=== PATIENT | female | born 1965 | race Caucasian/White ===

== ENCOUNTER → 2018-09-21 | Outpatient (CLI) | payer OTHER ==
--- NOTE | 2018-09-22 09:36 | Diagnostic Imaging Report ---
Examination: MRI SPINE LUMBAR WITHOUT CONTRAST History: Low back pain radiating to the left knee. Comparison studies: None Technique: Sagittal, coronal and axial T2 , sagittal T1 and STIR; axial spin density oblique. Findings: Number of lumbar vertebral bodies: Five. Alignment: Normal lordosis. No scoliosis. Soft tissues: No T2 hyperintense inflammatory changes. Posterior paraspinal soft tissues and muscles: No abnormality. Lower thoracic cord: Normal in signal and morphology. The tip of the conus is at T12-L1. Cauda equina: No masses. No arachnoiditis. Vertebrae: No fractures, infection or neoplasm. A 1.4 cm T1 and T2 hyperintense and STIR hypointense lesion is demonstrated in the L2 vertebral body on the right, representing a nonaggressive hemangioma. Degenerative changes: L1-L2: Mild bilateral facet arthropathy. No degenerative disc or foraminal or canal stenosis. L2-L3: Left foraminal and extraforaminal disc protrusion results in mild left neural foraminal narrowing and contacts the exiting left L2 nerve root. No right foraminal or canal stenosis. L3-L4: Mild diffuse bulge results in mild canal stenosis. No foraminal stenosis. Central annular fissure. L4-L5: Mild diffuse disc bulge and mild bilateral facet arthropathy. No foraminal or canal stenosis. Central disc protrusion with annular fissure which mildly flattens the ventral thecal sac. L5-S1: Mild asymmetric left disc bulging and mild bilateral facet arthropathy result in mild bilateral neural foraminal narrowing. No canal stenosis. Left central annular fissure. Trace bilateral facet joint effusions. IMPRESSION: 1. Degenerative changes from L1-L2 through L5-S1 with mild canal stenosis at L3-L4. Left foraminal and extra foraminal disc protrusion at L2-L3 contacts the exiting left L2 nerve root. 2. No significant (not moderate or severe) foraminal stenosis. 3. Annular fissures from L3-L4 through L5-S1. 4. Nonaggressive hemangioma of L2. Signed by: Dr. Carlie Wallis M.D. on 09/22/2018 9:32 AM
== END ==
LOC: MRI 12:32
PROVIDERS: ATTEND Orthopaedic Surgery Orthopaedic Surgery of the Spine
DX: M54.5 Low back pain (principal)
CPT/HCPCS: 72148

== ENCOUNTER 2018-10-08 06:31 | Observation (INO) | payer OTHER ==
[2018-10-06 09:09] LABS: BASOPHILS % 0.7 % (0.0-1.0); EOSINOPHILS % 0.7 % (0.0-6.0); HEMATOCRIT 38.8 % (34.2-44.1); HEMOGLOBIN 13.1 g/dL (12.0-16.0); LYMPHOCYTES # (AUTO) 1.8 (1.0-3.2); LYMPHOCYTES % 32.7 % (18.0-39.1); MEAN CORPUSCULAR HGB CONC 33.8 g/dL (31-35); MEAN CORPUSCULAR VOLUME 88.8 fL (81-99); MONOCYTES # (AUTO) 0.3 (0.2-0.8); MONOCYTES % 4.8 % (4.4-11.3); NEUTROPHILS # (AUTO) 3.3 (2.1-6.9); NEUTROPHILS % 60.9 % (38.7-80.0); PLATELET COUNT 179 x10e3/uL (140-360); RED BLOOD COUNT 4.37 x10e6/uL (3.6-5.1); RED CELL DISTRIBUTION WIDTH 12.3 % (11.7-14.4)
--- NOTE | 2018-10-06 09:17 | Diagnostic Imaging Report ---
EXAMINATION: PA and lateral views of the chest. COMPARISON: None CLINICAL HISTORY: Preoperative study for lumbar spine surgery DISCUSSION: Lines/tubes: None Lungs: The lungs are well inflated and clear. There is no evidence of pneumonia or pulmonary edema. Pleura: There is no pleural effusion or pneumothorax. Heart and mediastinum: The cardiomediastinal silhouette is normal. Bones and soft tissues: No acute bony abnormalities. IMPRESSION: No acute cardiopulmonary abnormalities. Signed by: Dr. Ramos Dyson M.D. on 10/06/2018 9:14 AM
[2018-10-06 09:25] LABS: ANION GAP 11.9 mmol/L (8-16); BLOOD UREA NITROGEN 13 mg/dL (7-26); BUN/CREATININE RATIO 17 (6-25); CALCIUM 9.1 mg/dL (8.4-10.2); CARBON DIOXIDE 28 mmol/L (22-29); CHLORIDE 106 mmol/L (98-107); CREATININE, SERUM 0.76 mg/dL (0.57-1.11); EST GLOMERULAR FILTRATION RATE > 60 ML/MIN (60-); GLUCOSE 90 mg/dL (74-118); POTASSIUM 3.9 mmol/L (3.5-5.1); SODIUM 142 mmol/L (136-145)
[2018-10-06 09:30] LABS: PARTIAL THROMBOPLASTIN TIME 26.1 seconds (23.8-35.5)
[2018-10-06 09:48] LABS: INR 0.9; PROTHROMBIN TIME 12.6 seconds (11.9-14.5)
[~2018-10-08] VITALS: Ht 182.9 cm; Wt 86.2 kg
[~2018-10-08 06:31] MED LIST: ADDERALL 30 MG30 MG PO; CELEBREX100 MG PO; GABAPENTIN300 MG PO; LEVOTHYROXINE; LEVOTHYROXINE50 MCG PO; ULTRAM50 MG PO
--- OUTSIDE RECORDS SUMMARY | 2018-10-08 06:34 | XMS REPORT ---
Author Author [facility] Address Unknown Phone Unavailable Care Team Providers Care [employer] Consultant Name Role Phone CHRISTA CANO Unavailable Unavailable NATALIYA RDZ Unavailable Unavailable Problems This patient has no known problems. Allergies, Adverse Reactions, Alerts This patient has no known allergies or adverse reactions. Medications This patient has no known medications. Results Test Description Test Time Test Comments Text Results Atomic Results Result Comments CHEST 2 VIEWS 2018-10-06 09:12:00 [facility] [address] [address] Patient Name: RAMANA CHURCH MR #: [id number] : 1965 Age/Sex: 53/F Req #: [id number] Adm Physician: Ordered by: CHRISTA CANO MD Report #: [id number] Location: OR Room/Bed: Procedure: [id number] DX/CHEST 2 VIEWS Exam Date: 10/06/18 Exam Time: 0900 REPORT STATUS: Signed EXAMINATION: PA and lateral views of the chest. COMPAR NICO: None CLINICAL HISTORY: Preoperative study for lumbar spine surgery DISCUSSION: Lines/tubes: None Lungs: The lungs are well inflated and clear. There is no evidence of pneumonia or pulmonary edema. Pleura: There is no pleural effusion or pneumothorax. Heart and mediastinum: The cardiomediastinal silhouette is normal. Bones and soft tissues: No acute bony abnormalities. IMPRESSION: No acute cardiopulmonary abnormalities. Signed by: Dr. Pasha Charles M.D. on 10/06/2018 9:14 AM Dictated By: PASHA CHARLES MD 3 Transcribed By: NICOLASA on 10/06/18913 COPY TO: CHRISTA CANO MD MRI SPINE LUMBAR WO 2018-09-22 08:17:00 [address] [address] Patient Name: RAMANA CHURCH MR #: [id number] : 1965 Age/Sex: 53/F Req #: [id number] Adm Physician: Ordered by: NATALIYA RDZ Report #: [id number] Location: MRI Room/Bed: Procedure: [id number] MRI/MRI SPINE LUMBAR WO Exam Date: Exam Time: REPORT STATUS: Signed Examination: MRI SPINE LUMBAR WITHOUT CONTRAST History: Low back pain radiating to the left knee. Comparison studies: None Technique: Sagittal, coronal and axial T2 , sagittal T1 and STIR; axial spin density oblique. Findings: Number of lumbar vertebral bodies: Five. Alignment: Normal lordosis. No scoliosis. Soft tissues: No T2 hyperintense inflammatory changes. Posterior paraspinal soft tissues and muscles: No abnormality. Lower thoracic cord: Normal in signal and morphology. The tip of the conus is at T12-L1. Cauda equina: No masses. No arachnoiditis. Vertebrae: No fractures, infection or neoplasm. A 1.4 cm T1 and T2 hyperintense and STIR hypointense lesion is demonstrated in the L2 vertebral body on the right, representing a nonaggressive hemangioma. Degenerative changes: L1-L2: Mild bilateral facet arthropathy. No degenerative disc or foraminal or canal stenosis. L2-L3: Left foraminal and extraforaminal disc protrusion results in mild left neural foraminal narrowing and contacts t he exiting left L2 nerve root. No right foraminal or canal stenosis. L3- L4: Mild diffuse bulge results in mild canal stenosis. No foraminal stenosis. Central annular fissure. L4-L5: Mild diffuse disc bulge and mild bilateral facet arthropathy. No foraminal or canal stenosis. Central disc protrusion with annular fissure which mildly flattens the ventral thecal sac. L5-S1: Mild asymmetric left disc bulging and mild bilateral facet arthropathy result in mild bilateral neural foraminal narrowing. No canal stenosis. Left central annular fissure. Trace bilateral facet joint effusions. IMPRESSION: 1. Degenerative changes from L1-L2 through L5-S1 with mild canal stenosis at L3-L4. Left foraminal and extra foraminal disc protrusion at L2-L3 contacts the exiting left L2 nerve root. 2. No significant (not moderate or severe) foraminal stenosis. 3. Annular fissures from L3-L4 through L5-S1. 4. Nonaggressive hemangioma of L2. Signed by: Dr. Carlie Wallis M.D. on 09/22/2018 9:32 AM Dictated By: CARLIE MALLOY MD 1 Transcribed By: NICOLASA on 09/22/18931 COPY TO: NATALIYA RDZ
[2018-10-08] MEDS ORDERED: GELATIN SPONGE 12-7MM ONE (06:41)
[2018-10-08] MEDS ORDERED: BACITRACIN 50,000 UNIT VIAL ONE (06:41)
[2018-10-08] MEDS ORDERED: BUPIVACAINE 0.5%/EPI 30 ML SDV INJ ONE (06:41)
[2018-10-08] MEDS ORDERED: THROMBIN FOR SOLN 5,000 UNIT VIAL ONE (06:41)
[2018-10-08] MEDS ORDERED: VANCOMYCIN 1GM/NS 250 ML 250 ML ONE (07:30)
[2018-10-08] MEDS ORDERED: HYDROMORPHONE 2MG/ML 2 MG/ML ML IV PRN (10:00)
[2018-10-08] MEDS ORDERED: CARISOPRODOL 350 MG TAB PO PRN (10:00)
[2018-10-08] MEDS ORDERED: OXYCODONE/ACETAMINOPHEN 5-325 1 EACH TABLET PO PRN (10:00)
[2018-10-08] MEDS ORDERED: PROMETHAZINE HCL (IM) 25 MG/ML VIAL IM PRN (10:00)
[2018-10-08] MEDS ORDERED: MORPHINE SULFATE 5 MG/ML VIAL IM PRN (10:00)
[2018-10-08] MEDS ORDERED: ONDANSETRON HCL INJ 2MG/ML 2ML 2 MG/ML VIAL IV PRN (10:00)
[2018-10-08] MEDS ORDERED: ACETAMINOPHEN 325 MG TAB PO PRN (10:00)
[2018-10-08] MEDS ORDERED: ZOLPIDEM TARTRATE 5 MG TAB PO PRN (10:00)
[2018-10-08] MEDS ORDERED: CEPACOL SORE THROAT LOZENGES PO PRN (10:00)
[2018-10-08] MEDS ORDERED: MAGNESIUM/ALUMINUM/SIMETHICONE 30 ML UDC PO PRN (10:00)
[2018-10-08] MEDS ORDERED: METOCLOPRAMIDE HCL 10 MG/2ML VIAL ONE (10:49)
[2018-10-08] MEDS ORDERED: FENTANYL CITRATE/PF 100MCG/2 ML INJ ONE ×2 (11:04→18:43)
--- NOTE | 2018-10-08 14:31 | NUR ---
Pt received from PACU, A&O, IV intact patent, no redness or swelling to insertion site. Ambulated down hallway with no assistance, gait is steady. Resp WNL. No c/o pain at this time.
[2018-10-08] MEDS ORDERED: MORPHINE SULFATE INJ 4 MG/ML INJ 1ML IM PRN (15:15)
--- NOTE | 2018-10-08 15:24 | Operative Report ---
DATE OF PROCEDURE: 10/08/2018 SURGEON: Vinayak Jordan MD PREOPERATIVE DIAGNOSIS: Left L2-3 intraforaminal disk herniation with radiculopathy, M51.16. POSTOPERATIVE DIAGNOSIS: Left L2-3 intraforaminal disk herniation with radiculopathy, M51.16. PROCEDURE: Left L2-3 lateral foraminotomy and microsurgical diskectomy, 10543. ANESTHESIA: General. INDICATIONS: The patient is a 53-year-old woman, who presents with a left L2-3 far lateral foraminal and extraforaminal disk herniation with L2 radiculopathy. She was taken to the operating room for microsurgical diskectomy through a lateral approach. PROCEDURE IN DETAIL: After induction of general anesthesia, the patient was placed on the operating table in prone position over Chaim frame. Lumbar region was prepped and draped in sterile fashion. A preoperative x-ray was obtained. A 1 inch paramedian incision was created overlying the L2 lamina on the left side. The lumbar fascia was opened to the left of midline and dissection was carried out to separate left paraspinal muscles away from the left L2 lamina and exposed region of the pars interarticularis of L2 and L2-3 facet joints. A second x-ray confirmed correct localization below the L2 pedicle. Retraction was maintained with an expandable Aesculap speculum retractor. The operating microscope was brought in. A high-speed drill equipped with saray bur was used to drill the lateral margin of the pars interarticularis of L2 and the superior lateral margin of the inferior articular process of L2. The lateral extension of the ligamentum flavum over the L2 neural foramina was resected and the L2 nerve root was exposed below the L2 pedicle. The epidural veins inferior to the nerve root were bipolar coagulated and divided with micro scissors. The herniated disk material immediately came into view under the L2 nerve root. This was mobilized with a micro ball probe and grasped with a micropituitary rongeur and removed. This maneuver was repeated numerous times with a larger ball probe being passed laterally under the L2 nerve root to retrieve the extruded disk fragment from the extraforaminal compartment. The herniated disk material was removed in multiple pieces until the L2 nerve root was fully exposed and decompressed. Meticulous hemostasis was secured. A small piece of Gelfoam was left below the L2 nerve root to maintain hemostasis. The wound was copiously irrigated with bacitracin solution. The lumbar fascia was closed with 0 Vicryl suture, subcutaneous layer was closed with 2-0 Vicryl sutures, and the skin was closed with 3-0 Monocryl sutures in subcuticular fashion. Steri-Strips and dressing were applied. The patient was awakened, extubated, and taken to postanesthesia care unit in stable condition. No intraoperative complications were encountered. ESTIMATED BLOOD LOSS: 10 mL. Vinayak Jordan MD PP/SERENITY /[id number]
[2018-10-08 16:36] VITALS: BP_SYST 129; BP_SYST 140; BP_DIAS 78; BP_DIAS 90
[2018-10-08 16:37] VITALS: BP 140/90
[2018-10-08] MEDS: GABAPENTIN 300 MG CAP PO SCH (17:42)
[2018-10-08] MEDS: LACTATED RINGER'S 1,000 ML IV SCH (17:43)
[2018-10-08] MEDS ORDERED: MIDAZOLAM HCL 2 MG/2 ML VIAL ONE (18:43)
--- NOTE | 2018-10-08 18:45 | NUR ---
Got report from previous nurse. Patient in bed. call light within reach. A&Ox3
[2018-10-08] MEDS ORDERED: ROCURONIUM BROMIDE 10 MG/ML 5ML VIAL ONE (19:10)
[2018-10-08] MEDS ORDERED: SEVOFLURANE INHAL SOLN 250 ML PEN BTL ONE (19:10)
[2018-10-08] MEDS ORDERED: ONDANSETRON HCL INJ 2MG/ML 2ML 2 MG/ML VIAL ONE (19:10)
[2018-10-08] MEDS ORDERED: GLYCOPYRROLATE INJ 1MG/ 5 ML SYR ONE (19:10)
[2018-10-08] MEDS ORDERED: LIDOCAINE HCL 2% LOCAL INJ 5 ML SDV VIAL INJ ONE (19:10)
[2018-10-08] MEDS ORDERED: DEXAMETHASONE SOD PHOS INJ 4 MG/ML VIAL ONE (19:10)
[2018-10-08] MEDS ORDERED: ACETAMINOPHEN 1000 MG/100 ML IV ONE (19:10)
[2018-10-08] MEDS ORDERED: NEOSTIGMINE 5 MG/5ML SYR ONE (19:10)
[2018-10-08] MEDS ORDERED: PROPOFOL IV EMULSION 10 MG/ML 20 ML VIAL ONE (19:10)
[2018-10-08 19:24] VITALS: BP 140/90
[2018-10-08 20:00] VITALS: BP 120/67
[2018-10-08] MEDS: VANCOMYCIN 1GM/NS 250 ML 250 ML IV SCH (20:24)
[2018-10-09 00:25] VITALS: BP 119/77
[2018-10-09 00:37] VITALS: BP 119/77
[2018-10-09] MEDS: LACTATED RINGER'S 1,000 ML IV SCH (02:27)
[2018-10-09 05:04] VITALS: BP 119/66
[2018-10-09] MEDS ORDERED: LEVOTHYROXINE SODIUM 50 MCG TAB PO SCH (06:00)
--- NOTE | 2018-10-09 07:23 | NUR ---
Gave report to oncoming nurse. Patient A&Ox3. Call light within reach. Patient in bed.
--- NOTE | 2018-10-09 07:30 | NUR ---
Patient is ambulating in hallway without any complaints voiced at this time. Spouse at side.
[2018-10-09 08:22] VITALS: BP 127/62
[2018-10-09] MEDS: VANCOMYCIN 1GM/NS 250 ML 250 ML IV SCH (08:36)
[2018-10-09] MEDS: GABAPENTIN 300 MG CAP PO SCH (08:36)
[2018-10-09] MEDS ORDERED: NON-FORMULARY MEDICATION (Amphet Asp/Amphet/D-Amphet (Adderall 30 Mg Tablet) 30 MG) PO SCH (09:00)
[2018-10-09] MEDS ORDERED: TRAMADOL HCL 50 MG TAB PO PRN (09:00)
[2018-10-09] MEDS ORDERED: CELECOXIB 100 MG CAP PO SCH (09:00)
[2018-10-09] MEDS ORDERED: NORCO 7.5-3251 EACH PO (10:15)
--- NOTE | 2018-10-09 10:44 | NUR ---
Patient discharged home with written instructions and prescription. Both patient and spouse verbalized understanding. IV dc'd earlier, cath intact, and dressing applied.
== END 2018-10-09 10:45 | disposition home or self-care (01) ==
LOC: OR 06:31 → PACU V 09:58 → IMCU 14:42
PROVIDERS: ADMIT Neurological Surgery; ATTEND Neurological Surgery
DX: M51.16 Intervertebral disc disorders with radiculopathy, lumbar region (principal); Z01.810 Encounter for preprocedural cardiovascular examination; Z01.812 Encounter for preprocedural laboratory examination; Z01.811 Encounter for preprocedural respiratory examination; Z88.0 Allergy status to penicillin; E03.9 Hypothyroidism, unspecified
CPT/HCPCS: 36415; 63056; 71046; 72020; 80048; 85025; 85610; 85730; 86850; 86900; 88304; 93005; G0378 ×2; J0131; J1100; J1170; J2001; J2250; J2405; J2704; J2765; J3370 ×2; J3490; J7121

== ENCOUNTER → 2018-10-23 | Outpatient (RCR) | payer OTHER ==
[~2018-10-23] MED LIST changes: +NORCO 7.5-3251 EACH PO
== END ==
LOC: PT 09:31
PROVIDERS: ATTEND Neurological Surgery
DX: M51.16 Intervertebral disc disorders with radiculopathy, lumbar region (principal)

== ENCOUNTER 2018-11-12 11:00 | Outpatient (RCR) | payer OTHER | END 2018-11-22 | LOC: PT 11:00 | PROVIDERS: ATTEND Neurological Surgery | DX: M51.16 Intervertebral disc disorders with radiculopathy, lumbar region (principal); M62.81 Muscle weakness (generalized) ==

== ENCOUNTER → 2020-05-28 | Outpatient (CLI) | payer OTHER ==
[~2020-05-28] MED LIST changes: +COVID-19 VACC, MRNA(MODERNA)/PF 100 MCG/0.5 ML VIAL IM ONE
== END ==
LOC: VACCPMC 07:30
DX: Z23 Encounter for immunization (principal); Z20.822 Contact with and (suspected) exposure to COVID-19

== ENCOUNTER → 2020-06-26 | Outpatient (CLI) | payer OTHER | LOC: VACCPMC 08:05 | DX: Z23 Encounter for immunization (principal); Z20.822 Contact with and (suspected) exposure to COVID-19 ==